=== PATIENT | female | born 1995 | race American Indian/Alaskan Native ===

== ENCOUNTER 2018-08-02 06:53 | Inpatient (IN) | payer MEDICAID, OTHER ==
[2018-08-02] MEDS ORDERED: SUBLIMAZE IV PRN ×2 (07:41→07:43)
[2018-08-02] MEDS ORDERED: STADOL IV PRN ×2 (07:41→07:43)
[2018-08-02] MEDS ORDERED: MINERAL OIL PO PRN ×2 (07:41→22:00)
[2018-08-02] MEDS ORDERED: XYLOCAINE 2% INFILTRATI ONE ×2 (07:41→09:00)
[2018-08-02] MEDS ORDERED: BRETHINE SUB-Q PRN (07:43)
[2018-08-02] MEDS ORDERED: BRETHINE IVP PRN (07:43)
[2018-08-02] MEDS ORDERED: NARCAN 0.4 MG/1 ML IV PRN (07:43)
[2018-08-02] MEDS ORDERED: LACTATED RINGERS 1,000 ML ONE (07:44)
[2018-08-02 07:58] LABS: Hematocrit 41.8 % (30.3-42.9); Hemoglobin 13.4 gm/dl (10.1-14.3); Mean Corpuscular HGB Conc 32 % (30-34); Mean Corpuscular Volume 87 fl (79-97); Platelet Count 302 K/mm3 (140-440); Red Blood Count 4.79 M/mm3 (3.65-5.03)
[2018-08-02] MEDS ORDERED: PITOCin/NS 30 UNIT/500ML 30 UNITS/500 ML BAG IV SCH ×3 (08:00)
[2018-08-02] MEDS ORDERED: PITOCin/NS 20 UNIT/1000ML DRIP 20 UNITS/1,000 ML BAG IV SCH ×3 (08:00→12:58)
[2018-08-02] MEDS ORDERED: LACTATED RINGERS 1,000 ML IV SCH ×2 (08:00)
[2018-08-02 08:22] LABS: Red Cell Distribution Width 20.7 % (13.2-15.2)
[2018-08-02] MEDS ORDERED: AMPICILLIN/NS 2 GM/100 ML 2 GM/100 ML BAG IV ONE (09:00)
--- NOTE | 2018-08-02 09:31 | History and Physical Report ---
History of Present Illness Date of examination: 08/02/18 Date of admission: 08/02/18 07:11 Chief complaint: contractions History of present illness: Pt is a 22 year old -[place] female NADINE 08/05/18 at 39w4d presents with regular contractions since 3 am. She denies leakage of fluid or vaginal bleeding. She has had care at [facility] since 10 wks complicated by measuring size greater than dates. She is GBS negative. 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: chlamydia (remote history ) Family/Genetic History: diabetes, hypertension Social history: no significant social history - Obstetrical History Expected Date of Delivery: 08/05/18 Actual Gestation: 39 Week(s) 4 Day(s) : 2 Para: 1 Hx # Term Pregnancies: 1 Number of Pregnancies: 0 Spontaneous Abortions: 0 Induced : 0 Number of Living Children: 1 Medications and Allergies Allergies Allergy/AdvReac Type Severity Reaction Status Date / Time No Known Allergies Allergy Verified 08/02/18 07:46 Home Medications Medication Instructions Recorded Confirmed Last Taken Type No Known Home Medications [No 08/02/18 08/02/18 Unknown History Reported Home Medications] Active Meds: Active Medications Butorphanol Tartrate (Stadol) 1 mg IV Q2H PRN PRN Reason: Pain, Moderate (4-6) Butorphanol Tartrate (Stadol) 2 mg IV Q2H PRN PRN Reason: Pain , Severe (7-10) Ephedrine Sulfate (Ephedrine Sulfate) 10 mg IV Q2M PRN PRN Reason: Hypotension Fentanyl (Sublimaze) 100 mcg IV Q2H PRN PRN Reason: Labor Pain Lactated Ringer's (Lactated Ringers) 1,000 mls @ 125 mls/hr IV DIRECT ESVIN Ampicillin Sodium (Ampicillin/Ns 1 Gm/50 Ml) 1 gm in 50 mls @ 100 mls/hr IV Q4H ESVIN; Protocol Ampicillin Sodium (Polycillin/Ns 2 Gm/100 Ml) 2 gm in 100 mls @ 100 mls/hr IV ONCE ONE; Protocol Stop: 08/02/18 09:59 Oxytocin/Sodium Chloride (Pitocin/Ns 20 Unit/1000ml Drip) 20 units in 1,000 mls @ 125 mls/hr IV DIRECT ESVIN Oxytocin/Sodium Chloride (Pitocin/Ns 30 Unit/500ml) 30 units in 500 mls @ 4 mls/hr IV TITR ESVIN; Protocol Mineral Oil (Mineral Oil) 30 ml PO QHS PRN PRN Reason: Constipation Naloxone HCl (Narcan 0.4 Mg/1 Ml) 0.1 mg IV Q2MIN PRN PRN Reason: Res Rate </= 8 or 02 SAT < 92% Terbutaline Sulfate (Brethine) 0.25 mg IVP ONCE PRN PRN Reason: Hyperstimulation/Hypertonicity Stop: 08/02/18 20:00 Review of Systems All systems: negative - Vital Signs Vital signs: Vital Signs Pulse BP 77 137/80 08/02/18 08:35 08/02/18 08:35 Temp Pulse Resp BP Pulse Ox 99 H 120/75 90 08/02/18 09:13 08/02/18 09:04 08/02/18 09:13 - Physical Exam Breasts: Positive: deferred Cardiovascular: Regular rate Lungs: Positive: Clear to auscultation Abdomen: Positive: soft (gravid, obese ) Uterus: Positive: enlarged (gravid ) Extremities: Positive: normal - Obstetrical FHR: auscultation normal Uterine Contraction Monitor Mode: External Cervical Dilatation: 8 Cervical Effacement Percentage: 80 station: -1 Uterine Contraction Pattern: Regular Uterine Tone Measurement Phase: Resting Uterine Contraction Intensity: Strong/Firm Results Result Diagrams: 08/02/18 07:39 Abnormal lab results 08/02/18 Range/Units 07:39 WBC 12.9 H (4.5-11.0) K/mm3 RDW 20.7 H (13.2-15.2) % All other labs normal. Assessment and Plan A: IUP at 39w4d Active labor GBS Negative Genital Herpes without lesion or prodrome AROM- meconium stained amniotic fluid P: Admit to labor and delivery Routine intrapartum care Closely monitor maternal and status
[2018-08-02] MEDS ORDERED: MARCAINE 0.25% INFILTRATI ONE (09:51)
--- NOTE | 2018-08-02 10:26 | Procedure Note ---
OB Delivery Note - Delivery Date of Delivery: 08/02/18 Surgeon: MARIAN BECERRA Estimated blood loss: 300cc - Vaginal Delivery presentation: vertex Delivery position: OA Intrapartum events: PROM->1hr before delivery, shoulder dystocia Delivery induction: none Delivery augmentation: rupture of membranes Delivery monitor: external FHT, external uterine Route of delivery: Delivery placenta: spontaneous Episiotomy: none Delivery laceration: none Anesthesia: intravenous Delivery comments: Pt progressed to complete/complete/+2. Head delivered in MATILDE presentation. Shoulder dystocia for 30 seconds was relieved with [place] and suprapubic pressure. Shoulders then delivered quickly followed by remainder of body. Cord clamped and cut and handed to NICU staff in attendance for meconium. Cord blood collected. Placenta delivered spontaneously (intact, 3VC). Vagina and perineum explored. No lacerations. EBL 300 mL.
[2018-08-02] MEDS ORDERED: IBUPROFEN PO PRN (10:28)
[2018-08-02] MEDS ORDERED: AMPICILLIN/NS 1 GM/50 ML 1 GM/50 ML BAG IV SCH (12:00)
[2018-08-02] MEDS ORDERED: DULCOLAX PR PRN (12:58)
[2018-08-02] MEDS ORDERED: PHENERGAN PR PRN (12:58)
[2018-08-02] MEDS ORDERED: DERMOPLAST TP PRN (12:58)
[2018-08-02] MEDS ORDERED: MILK OF MAGNESIA PO PRN (12:58)
[2018-08-02] MEDS ORDERED: SODIUM CHLORIDE FLUSH SYRINGE 10 ML IV NR (12:58)
[2018-08-02] MEDS ORDERED: IBUPROFEN PO SCH (12:58)
[2018-08-02] MEDS ORDERED: LANSINOH TP PRN ×2 (12:58)
[2018-08-02] MEDS ORDERED: ZOFRAN IV PRN (12:58)
[2018-08-02] MEDS ORDERED: TUCKS PAD TP PRN (12:58)
[2018-08-02] MEDS ORDERED: TYLENOL PO PRN (12:58)
[2018-08-02] MEDS ORDERED: BENADRYL PO PRN (12:58)
[2018-08-02] MEDS ORDERED: PHENERGAN PO PRN (12:58)
[2018-08-02] MEDS: NORCO 5/325 PO PRN (13:56)
[2018-08-02] MEDS: FEOSOL PO SCH (21:51)
[2018-08-02 22:50] LABS: Hematocrit 35.3 % (30.3-42.9); Hemoglobin 11.4 gm/dl (10.1-14.3)
[2018-08-02] MEDS: IBUPROFEN PO SCH (22:53)
[2018-08-03] MEDS: FEOSOL PO SCH ×3 (09:24→22:16)
[2018-08-03] MEDS ORDERED: M-M-R II VACCINE SUB-Q ONE (10:31)
[2018-08-03] MEDS ORDERED: BOOSTRIX IM ONE (10:31)
[2018-08-03] MEDS: IBUPROFEN PO SCH ×2 (11:50→18:49)
--- NOTE | 2018-08-03 12:34 | Progress Note ---
Assessment and Plan A/P PPD 1 s/p doing well hct stable d/c home tomorrow Subjective - Subjective Date of service: 08/03/18 Principal diagnosis: Patient reports: appetite normal, voiding normally, pain well controlled, flatus, ambulating normally [place]: doing well Objective - Vital Signs Latest vital signs: Vital Signs Temp Pulse Resp BP BP Pulse Ox 08/03/18 08:01 98.4 F 103 H 18 106/55 98 08/03/18 00:00 98.8 F 91 H 20 122/66 08/02/18 23:53 18 08/02/18 22:53 20 08/02/18 18:31 98.1 F 101 H 24 126/75 100 08/02/18 14:56 16 08/02/18 12:36 98.6 F 96 H 18 122/76 99 Intake and Output 08/02/18 08/03/18 08/03/18 23:59 07:59 15:59 Intake Total 240 240 Output Total 900 Balance -660 240 Intake: Oral 240 240 Output: Urine 900 Void 900 Other: Total, Intake Amount 240 240 Total, Output Amount 900 # Voids Void 1 1 - Exam Breasts: Present: normal Cardiovascular: Present: Regular rate, Normal S1 Lungs: Present: Clear to auscultation, Normal air movement Abdomen: Present: normal appearance, soft, normal bowel sounds. Absent: distention, tenderness, guarding Uterus: Present: normal, firm, fundal height below umbilicus. Absent: bogginess, tenderness Extremities: Present: normal Incision: Present: normal
--- NOTE | 2018-08-03 12:36 | Discharge Summary ---
Providers - Providers Date of Admission: 08/02/18 07:11 Date of discharge: 08/04/18 Attending physician: MARIAN BECERRA Primary care physician: MARIAN BECERRA Hospitalization Reason for admission: active labor Delivery: Episiotomy: none Laceration: none Incision: normal, dry, intact Other procedures: none complications: none Discharge diagnosis: IUP at term delivered baby: female Hospital course: unremarkable hospital course Condition at discharge: Good Disposition: DC-01 TO HOME OR SELFCARE Plan - Discharge Medications Prescriptions: Ibuprofen [Motrin] 800 mg PO Q8HR PRN #30 tablet PRN Reason: Pain, Moderate (4-6) HYDROcodone/ACETAMINOPHEN [Rocky Comfort 5-325 Tablet] 1 each PO Q6H PRN #20 tablet PRN Reason: Pain, Moderate (4-6) - Provider Discharge Summary Activity: routine, no sex for 6 weeks, no strenuous exercise Diet: routine Instructions: routine Additional instructions: [] Smoking cessation referral if applicable(refer to patient education folder for contact #) [] Refer to [facility] Booklet Call your doctor immediately for: * Fever > 100.5 * Heavy vaginal bleeding ( >1 pad per hour) * Severe persistent headache * Shortness of breath * Reddened, hot, painful area to leg or breast * Drainage or odor from incision. * Keep incision clean and dry at all times and follow doctor's instructions regarding bathing/showering - Follow up plan Follow up: MARIAN BECERRA MD [Primary Care Provider] - 08/30/18
[2018-08-04] MEDS: IBUPROFEN PO SCH (01:55)
[2018-08-04] MEDS: NORCO 5/325 PO PRN (01:56)
[2018-08-04] MEDS: FEOSOL PO SCH (10:53)
[2018-08-04 15:29] VITALS: BP 121/74
== END 2018-08-04 15:30 | disposition home or self-care (01) | DRG 774 ==
LOC: TRG 06:53 → LD 07:11 → UNDOADMIN 07:11 → OB 11:58
PROVIDERS: ADMIT Obstetrics & Gynecology; ATTEND Obstetrics & Gynecology
PROC: 10E0XZZ Delivery of Products of Conception, External Approach (ICD-10-PCS; principal; 2018-08-02)
PROC: 10907ZC Drainage of Amniotic Fluid, Therapeutic from Products of Conception, Via Natural or Artificial Opening (ICD-10-PCS; 2018-08-02)
PROC: 3E0234Z Introduction of Serum, Toxoid and Vaccine into Muscle, Percutaneous Approach (ICD-10-PCS; 2018-08-03)
DX: O42.92 Full-term premature rupture of membranes, unspecified as to length of time between rupture and onset of labor (principal); O98.32 Other infections with a predominantly sexual mode of transmission complicating childbirth; O66.0 Obstructed labor due to shoulder dystocia; Z3A.39 39 weeks gestation of pregnancy; Z37.0 Single live birth; Z23 Encounter for immunization; Z83.3 Family history of diabetes mellitus; Z82.49 Family history of ischemic heart disease and other diseases of the circulatory system
CPT/HCPCS: 36415; 85014; 85018; 85027; 86592; 86850; 86900; 86901; 88307; G0378; J0290; J2590; J3010; J7120